=== PATIENT | male | born 1995 | race Hispanic/Latino ===

== ENCOUNTER 2020-09-20 19:46 | Emergency (ER) | payer SELFPAY ==
[~2020-09-20] VITALS: Ht 182.9 cm; Wt 90.7 kg
[2020-09-20] MEDS ORDERED: KETOROLAC TROMETHAMINE 30 MG/ML VIAL IV STA (19:58)
[2020-09-20] MEDS ORDERED: SODIUM CHLORIDE 0.9% 1000 ML BAG IV ONE (20:15)
[2020-09-20] MEDS ORDERED: ONDANSETRON HCL INJ 2MG/ML 2ML 2 MG/ML VIAL IV ONE (20:15)
[2020-09-20] MEDS ORDERED: KETOROLAC TROMETHAMINE 30 MG/ML VIAL ONE (20:28)
[2020-09-20] MEDS ORDERED: SODIUM CHLORIDE 0.9% 1000ML 1,000 ML ONE (20:28)
[2020-09-20] MEDS ORDERED: ONDANSETRON HCL INJ 2MG/ML 2ML 2 MG/ML VIAL ONE (20:28)
[2020-09-20 21:58] VITALS: BP 127/68
[2020-09-20] MEDS ORDERED: ONDANSETRON ODT8 MG SL (21:59)
== END 2020-09-20 22:05 | disposition home or self-care (01) ==
LOC: FSED 19:59
DX: K59.00 Constipation, unspecified (principal)
CPT/HCPCS: 74176; 80053; 81003; 85025; 96374; 96376; 99284; J1885; J2405; J7030